=== PATIENT | male | born 2000 | race Hispanic/Latino ===

== ENCOUNTER 2021-03-01 14:32 | Emergency (ER) | payer SELFPAY ==
--- NOTE | ~2021-03-01 | XR_ITS ---
XR chest 2V DATE: 03/01/2021 18:42 INDICATION: Chest pain, bilateral leg numbness, headache TECHNIQUE: PA and lateral views COMPARISON: None FINDINGS: Normal heart size. No hilar or mediastinal enlargement. No pulmonary infiltrate or consolid ation, pleural effusion or pulmonary vascular congestion or pneumothorax. Included skeletal structure s are unremarkable. IMPRESSION: Negative Reviewed, dictated and finalized at location B. IMPRESSION: Negative
--- NOTE | ~2021-03-01 | CT_ITS ---
EXAMINATION: CT abdomen pelvis w con INDICATION: Abdominal pain TECHNIQUE: Computed tomographic images of the abdomen and pelvis were obtained after the administrati on of 100 cc of Omnipaque 350 intravenous contrast. The dose-length product (DLP) was 202.40 mGy-cm. Automated exposure control and iterative reconstruction technique were employed. COMPARISON: None available FINDINGS: The lung bases are clear. The heart size is normal. The liver, spleen, pancreas, gallbladde r, and adrenal glands are normal. The kidneys are unremarkable. No pathologically enlarged abdominal or pelvic lymph nodes are identified. There is no free intraperitoneal gas or evidence of bowel obstr uction. A large volume of colonic stool is present. IMPRESSION: 1. Constipation Reviewed, dictated and finalized at location A. IMPRESSION: 1. Constipation
--- NOTE | ~2021-03-01 | CT_ITS ---
EXAMINATION: CT brain wo con INDICATION: Headache COMPARISON: None TECHNIQUE: Standard unenhanced head CT. The dose-length product (DLP) was 605.33 mGy-cm. The mA was a djusted according to patient size. Iterative reconstruction technique was employed. FINDINGS: There is no intracranial hemorrhage, acute infarction, or abnormal mass lesion. The ventric les are normal. There is no abnormal mass effect or midline shift. The fonseca-white matter differentiat ion is normal. The basal cisterns are patent. The orbits are normal. The paranasal sinuses, mastoids and calvarium are normal. IMPRESSION: 1. No acute intracranial abnormality. Reviewed, dictated and finalized at location A.
[2021-03-01 15:19] VITALS: BP 122/82; PULSE 78; RESP 14; TEMP 36.8; O2SAT 99
--- NOTE | 2021-03-01 16:41 | ECG_ITS ---
Measurements Intervals [place] Rate: 78 P: 46 MS: 132 QRS: 67 QRSD: 93 T: 51 QT: 385 QTc: 441 Interpretive Statements SINUS RHYTHM ST ELEVATION IN ANTERIOR LEADS, PROBABLY EARLY REPOLARIZATION BASELINE WANDER- I, II, III BORDERLINE ECG Electronically Signed On 03-01-2021 19:14:18 CDT by Jc White D.O.
--- NOTE | 2021-03-01 16:41 | ED.HA ---
HPI - Headache General Chief Complaint: Headache Stated Complaint: HEADACHE Time Seen by Provider: 03/01/21 16:40 Source: patient Mode of arrival: ambulatory Limitations: no limitations History of Present Illness HPI Narrative: Patient is a 20-year-old male who is presenting for evaluation of headache. Patient has been living in the [facility] for 5 weeks, states that he just immigrated here from [place]. He reports that he has had 2 months of intermittent headache and neck pain as well as tingling in his hands. Headache is in the back of his head, described as dull and aching in nature. No thunderclap sensation. No vision changes. No photophobia. No earache or discharge from the ears. Patient denies any current chest pain but states he has had intermittent chest pain and shortness of breath. Intermittent abdominal pain without nausea or vomiting. + Patient reports that he had a head injury as a child but denies any other history of medical problems. He states that he had access to clean water while he was immigrating from [place]. He denies any diarrhea or constipation. No urinary symptoms. No rash. To his knowledge he was fully vaccinated as a child. He denies alcohol use, drug use or tobacco use. Related Data Allergies Allergy/AdvReac Type Severity Reaction Status Date / Time No Known Allergies Allergy Verified 03/01/21 15:26 Review of Systems Review of Systems: CONSTITUTIONAL: Denies fever, chills, or sweats. EYES: Denies visual changes, redness, or discharge. ENT: Denies rhinorrhea, congestion, sore throat, or otalgia. CARDIOVASCULAR: Denies current chest pain, palpitations, or edema. RESPIRATORY: Denies cough or dyspnea. GASTROINTESTINAL: Reports abdominal pain, denies nausea or vomiting GENITOURINARY: Denies dysuria or hematuria. SKIN: Denies rash or itching. MUSCULOSKELETAL: Denies back pain, joint pain, or myalgia. NEUROLOGIC: Reports headache without numbness or weakness currently Exam Narrative: GENERAL: Awake, alert, conversant HEAD: Normocephalic, atraumatic. EYES: PERRLA and EOMI. ENT: Nares clear, no rhinorrhea or epistaxis. Mucous membranes moist. NECK: Supple. CHEST: No respiratory distress, breathing even and non labored HEART: Regular rate, sinus rhythm ABDOMEN:Non distended, mild abdominal tenderness throughout EXTREMITIES: Normal range of motion. No edema. SKIN: Warm, dry, no rash. NEURO:No focal deficits. Alert and oriented x3. Finger to nose intact bilaterally. EOMs intact without nystagmus. No facial droop/asymmetry noted bilaterally. Grimace intact. Intact sensation in face. Hearing intact bilaterally. Shoulder shrug intact. Strength 5/5 bilateral upper extremities. Strength 5/5 bilateral lower extremities. Reflexes 2+ patellar. Heel to meredith intact bilaterally. Ambulatory exam deferred. Course Vital Signs Vital signs: Vital Signs Temperature 36.8 C 03/01/21 15:19 Pulse Rate 78 03/01/21 15:19 Respiratory Rate 14 03/01/21 15:19 Blood Pressure 122/82 03/01/21 15:19 Pulse Oximetry 99 03/01/21 15:19 Temperature 36.8 C 03/01/21 15:19 Pulse Rate 78 03/01/21 15:19 Respiratory Rate 14 03/01/21 15:19 Blood Pressure 122/82 03/01/21 15:19 Pulse Oximetry 99 03/01/21 15:19 MDM - Headache MDM Narrative Medical decision making narrative: Patient presenting for evaluation of multiple complaints. At the time of assessment, ABCs are intact and vital signs are stable. Patient already in a headache for 2 months, does not seem consistent with infectious etiology. No meningitic signs. Patient without any focal neurological deficits on exam. CT head is negative for acute intracranial pathology. Laboratory work is reassuring. No significant leukocytosis. No electrolyte derangement or acute kidney injury. Chest x-ray shows no evidence of infection. Troponin is not elevated. No electrolyte derangement. CT scan of the abdomen/pelvis without acute pathology aside from
[2021-03-01 17:14] LABS: Basophils Absolute Auto 0.1 K/mm3 (0.0-0.1); Basophils Percent Auto 0.9 % (0.2-1.2); Eosinophils Absolute Auto 0.4 K/mm3 (0-0.3); Eosinophils Percent Auto 4.7 % (0-4.4); Hematocrit 41.1 % (42.0-52.0); Hemoglobin 13.9 g/dL (14.0-18.0); Immature Granulocyte Absolute 0.02 K/mm3 (0.00-0.031); Immature Granulocyte Percent A 0.2 % (0-0.5); Lymphocytes Percent Auto 33.7 % (18.3-44.2); Mean Corpuscular HGB Conc 33.8 g/dl (32-36); Mean Corpuscular Hemoglobin 29.6 pg (26-34); Mean Corpuscular Volume 87.6 fl (80-100); Mean Platelet Volume 9.6 fl (7.4-10.4); Monocytes Absolute Auto 0.7 K/mm3 (0.1-0.6); Monocytes Percent Auto 7.1 % (2.6-8.5); Neutrophils Absolute Auto 4.9 K/mm3 (1.3-6.7); Neutrophils Percent Auto 53.4 % (45.5-73.1); Platelet Count Result 388 k/mm3 (150-375); Red Blood Count 4.69 M/mm3 (4.6-6.20); Red Cell Distribution Width 13.1 % (11.5-14.5); White Blood Count 9.2 K/mm3 (4.5-10.0)
[2021-03-01] MEDS: SODIUM CHLORIDE 0.9% IV 1,000 ML 999 ML IV CONT (17:17)
[2021-03-01] MEDS: ACETAMINOPHEN 500 MG TABLET 1000 MG PO (17:18)
[2021-03-01] MEDS: diphenhydrAMINE HCl CAP 25 MG CAPSULE PO (17:18)
[2021-03-01] MEDS: METOCLOPRAMIDE HCL INJ 10 MG/2 ML VIAL IV PUSH (17:18)
[2021-03-01 17:26] LABS: INR 0.9; Prothrombin Time 12.4 Seconds (11.1-14.7)
[2021-03-01 17:27] LABS: Partial Thromboplastin Time 31.5 SECONDS (22.3-36.8)
[2021-03-01 17:30] LABS: Anion Gap 10 mmol/L (8-16); Blood Urea Nitrogen 4 mg/dL (9-20); Calcium 9.4 mg/dL (8.4-10.2); Carbon Dioxide 31 mmol/L (22-30); Chloride 101 mmol/L (98-107); Estimated CRCL calculation 114 ml/min; Estimated Glomerular Filt Rate > 60; Glucose 82 mg/dL (65-110); Potassium 3.6 mmol/L (3.4-5.0); Sodium 142 mmol/L (137-145)
--- NOTE | 2021-03-01 17:41 | PC.NURSE ---
Pt feeling anxious after reglan administration. Pt told that this feeling should subside in approx 10min. EDP Siomara notified. No new orders at this time. Pt refusing CT at this time.
[2021-03-01 17:42] LABS: Troponin I < 0.012 ng/mL (0.000-0.034)
[2021-03-01 18:23] LABS: Add Urine Microscopic? NO; Appearance Urine Clear (Clear); Bilirubin Urine Negative (Negative); Blood Urine Negative (Negative); Color Urine Straw (Yellow); Glucose Urine UA Negative (Negative); Ketones Urine Negative (Negative); Leukocyte Esterase Ur Negative LEU/UL (Negative); Nitrate Urine Negative (Negative); Protein Urine Negative (Negative); Specific Grav Ur 1.005 (1.001-1.035); Urobilinogen Urine Negative mg/dL (<2.0)
[2021-03-01 19:30] VITALS: BP 120/76; PULSE 72; RESP 16; O2SAT 100
== END 2021-03-01 19:30 | disposition home or self-care (01) ==
PROVIDERS: Emergency Provider Emergency Medicine
DX: R51.9 Headache, unspecified (principal); K59.00 Constipation, unspecified; R94.31 Abnormal electrocardiogram [ECG] [EKG]
CPT/HCPCS: 36415; 70450; 71046; 74177; 80048; 81003; 84484; 85025; 85610; 85730; 93005; 96361; 96374; 99284; A9270; J2765; J7030; Q9967